=== PATIENT | female | born 1950 | race Caucasian/White ===

== ENCOUNTER → 2017-06-12 | Outpatient (CLI) | payer MEDICARE, MEDICAID | END | disposition home or self-care (01) | LOC: CFH 15:50 | PROVIDERS: ATTEND Internal Medicine Critical Care Medicine | DX: J43.2 Centrilobular emphysema (principal); J96.10 Chronic respiratory failure, unspecified whether with hypoxia or hypercapnia; E07.89 Other specified disorders of thyroid | CPT/HCPCS: 71250 ==

== ENCOUNTER → 2017-10-24 | Outpatient (CLI) | payer MEDICARE, MEDICAID | END | disposition home or self-care (01) | LOC: CFH 10:34 | PROVIDERS: ATTEND Internal Medicine Critical Care Medicine | DX: M48.02 Spinal stenosis, cervical region (principal); M50.20 Other cervical disc displacement, unspecified cervical region | CPT/HCPCS: 72141 ==

== ENCOUNTER → 2017-12-16 | Outpatient (CLI) | payer MEDICARE, MEDICAID | END | disposition home or self-care (01) | LOC: CFH 09:40 | PROVIDERS: ATTEND Family Medicine | DX: Z12.31 Encounter for screening mammogram for malignant neoplasm of breast (principal); M81.0 Age-related osteoporosis without current pathological fracture; N95.9 Unspecified menopausal and perimenopausal disorder | CPT/HCPCS: 77080; 77067 ==

== ENCOUNTER 2018-05-13 10:09 | Outpatient (CLI) | payer MEDICARE, MEDICAID ==
[2018-05-13 11:50] LABS: BASOPHILS # (AUTO) 0.03 x10^3/uL (0-0.1); BASOPHILS % (AUTO) 0 % (0-1); EOSINOPHILS # (AUTO) 0.17 x10^3/uL (0-0.4); EOSINOPHILS % (AUTO) 2 % (1-7); LYMPHOCYTES # (AUTO) 2.29 x10^3/uL (1-3.4); LYMPHOCYTES % (AUTO) 33 % (22-44); MD NO; MEAN CORPUSCULAR HEMOGLOBIN 32.2 pg (27.0-34.8); MEAN CORPUSCULAR HGB CONC 33.4 g/dL (32.4-35.8); MEAN CORPUSCULAR VOLUME 96.5 fL (80-100); MEAN PLATELET VOLUME 8.1 fL (7.4-10.4); MONOCYTES # (AUTO) 0.67 x10^3/uL (0.2-0.8); MONOCYTES % (AUTO) 10 % (2-9); NEUTROPHILS % (AUTO) 55 % (42-75); PLATELET COUNT 201 x10^3/uL (130-400); RED BLOOD COUNT 4.25 x10^6/uL (3.82-5.3); RED CELL DISTRIBUTION WIDTH 12.8 % (9.6-15.2)
[2018-05-13 11:57] LABS: INTERNATIONAL NORMALIZED RATIO 1.04 (0.93-1.1)
[2018-05-13 12:00] LABS: ALANINE AMINOTRANSFERASE 115 U/L (12-78); ALBUMIN 3.5 g/dL (3.4-5.0); ANION GAP 6 mmol/L (5-15); CALCIUM 8.7 mg/dL (8.5-10.1); CHLORIDE 105 mmol/L (98-107); GAMMA GLUTAMYL TRANSPEPTIDASE 490 U/L (5-55)
[2018-05-13 12:04] LABS: % IRON SATURATION 34 % (20-55); ALKALINE PHOSPHATASE 76 U/L (45-117); BILIRUBIN,TOTAL 0.6 mg/dL (0.2-1.0); IRON LEVEL 146 mcg/dL (50-170); TOTAL IRON BINDING CAPACITY 434 mcg/dL (250-450)
== END 2018-05-13 23:59 | disposition home or self-care (01) ==
LOC: RAD 10:09
PROVIDERS: ATTEND Physician Assistant
DX: K80.20 Calculus of gallbladder without cholecystitis without obstruction (principal); B18.2 Chronic viral hepatitis C; R74.8 Abnormal levels of other serum enzymes
CPT/HCPCS: 36415; 76700; 80053; 81596; 82107; 82172; 82247; 82728; 82977; 83010; 83540; 83550; 83883; 84460; 85025; 85610; 86038; 86704; 86706; 86708; 87340; 87522; 87806; 87902; G0475

== ENCOUNTER 2019-05-26 11:50 | Inpatient (IN) | payer MEDICARE, MEDICAID ==
[~2019-05-26] VITALS: Ht 165.1 cm; Wt 60.7 kg
[2019-05-26] MEDS ORDERED: AMOXICILLIN (12:22)
--- NOTE | 2019-05-26 12:22 | NUR ---
PT CAME IN FROM . PT HAS COUGH AND HAS BEEN COUGHING UP YELLOW MUCUS. WAS GIVEN ABX FROM ON ON THE WHICH HAS GIVEN HER DIARRHEA. PT IS ON 3LITERS O2 VIA [facility] WHICH HER IS RX. SHE IS ON O2 02/12. O2 SAT AT 95%. 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 O2 SAT IS 95%
[2019-05-26] MEDS ORDERED: ALBUTEROL/IPRATROPIUM 2.5MG/0.5MG, 3 ML ONE (13:18)
--- NOTE | 2019-05-26 13:26 | NUR ---
PT RESTING IN HOSPITAL BED. AWAITING BREATHING TREATMENT
[2019-05-26] MEDS ORDERED: ALBUTEROL/IPRATROPIUM 2.5MG/0.5MG, 3 ML NPPB ONE (13:30)
[2019-05-26 13:36] LABS: BASOPHILS # (AUTO) 0.01 x10^3/uL (0-0.1); BASOPHILS % (AUTO) 0 % (0-1); EOSINOPHILS # (AUTO) 0.15 x10^3/uL (0-0.4); EOSINOPHILS % (AUTO) 1 % (1-7); LYMPHOCYTES # (AUTO) 1.83 x10^3/uL (1-3.4); LYMPHOCYTES % (AUTO) 17 % (22-44); MD NO; MEAN CORPUSCULAR HEMOGLOBIN 31.1 pg (27.0-34.8); MEAN CORPUSCULAR VOLUME 94.3 fL (80-100); MEAN PLATELET VOLUME 7.3 fL (7.4-10.4); MONOCYTES # (AUTO) 0.07 x10^3/uL (0.2-0.8); MONOCYTES % (AUTO) 1 % (2-9); NEUTROPHILS # (AUTO) 8.68 x10^3/uL (1.8-6.8); NEUTROPHILS % (AUTO) 81 % (42-75); PLATELET COUNT 262 x10^3/uL (130-400); RED BLOOD COUNT 4.11 x10^6/uL (3.82-5.3); RED CELL DISTRIBUTION WIDTH 12.9 % (9.6-15.2)
[2019-05-26 13:50] LABS: ALBUMIN 3.2 g/dL (3.4-5.0); ANION GAP 4 mmol/L (5-15); CALCIUM 9.1 mg/dL (8.5-10.1); CHLORIDE 105 mmol/L (98-107)
[2019-05-26 13:52] LABS: ALANINE AMINOTRANSFERASE 26 U/L (12-78); ALKALINE PHOSPHATASE 53 U/L (45-117); BILIRUBIN,TOTAL 0.3 mg/dL (0.2-1.0); CREATININE 0.66 mg/dL (0.55-1.02); TOTAL PROTEIN 7.5 g/dL (6.4-8.2); TROPONIN I < 0.015 ng/mL (0.000-0.045)
--- NOTE | 2019-05-26 14:07 | NUR ---
PT RESTING IN HOSPITAL BED. NO NEEDS AT THIS TIME
[2019-05-26] MEDS ORDERED: SODIUM CHLORIDE FLUSH 10ML SYR IVF PRN (14:30)
[2019-05-26] MEDS: SODIUM CHLORIDE 0.9% 1,000 ML IV SCH ×2 (15:49→21:04)
[2019-05-26] MEDS ORDERED: PLEASE ENTER HEIGHT AND WEIGHT MC SCH (16:00)
[2019-05-26] MEDS: PLEASE ENTER WEIGHT MC SCH (16:08)
--- NOTE | 2019-05-26 16:43 | NUR ---
PT WAS ORIGINALLY GOING TO ONC. ORDER CHANGED TO CTELE. PT IS IN ROOM AWAITING ROOM.
[2019-05-26 17:02] LABS: TROPONIN I < 0.015 ng/mL (0.000-0.045)
--- NOTE | 2019-05-26 17:03 | NUR ---
PT AMBULATED TO BATHROOM. UNABLE TO PROVIDE STOOL SAMPLE AT THIS TIME
[2019-05-26] MEDS ORDERED: ENOXAPARIN 40 MG/0.4 ML ONE (17:06)
[2019-05-26] MEDS ORDERED: GABAPENTIN 300 MG CAPSULE ONE (17:07)
[2019-05-26] MEDS: GABAPENTIN 300 MG CAPSULE PO SCH ×2 (17:11→19:56)
[2019-05-26] MEDS: ENOXAPARIN 40 MG/0.4 ML SQ SCH (17:11)
--- NOTE | 2019-05-26 17:17 | NUR ---
SPOKE TO PHARMACY. DR CALLES SAID IT WAS OK TO ADM 40MG LOVENOX
[2019-05-26 18:24] VITALS: BP 116/78
[2019-05-26] MEDS: ALBUTEROL/IPRATROPIUM 2.5MG/0.5MG, 3 ML NPPB SCH (19:20)
[2019-05-26] MEDS: BUDESONIDE 0.5 MG/2 ML INHA INH SCH (19:22)
[2019-05-26 19:25] VITALS: BP 140/78
[2019-05-26] MEDS ORDERED: METH5TAB2 PO (19:26)
[2019-05-26] MEDS ORDERED: LORA-247 PO (19:48)
[2019-05-26] MEDS ORDERED: MONT10TA6 PO (19:48)
[2019-05-26] MEDS ORDERED: TIOT4MIS3 INH (19:55)
[2019-05-26] MEDS ORDERED: ROFL250T PO (19:55)
[2019-05-26] MEDS ORDERED: IPRA4AER INH (19:55)
[2019-05-26] MEDS ORDERED: ALBU18HF INH (19:55)
[2019-05-26] MEDS ORDERED: FLUT100B INH (19:55)
[2019-05-26] MEDS ORDERED: GABA-827 PO (19:55)
[2019-05-26] MEDS: GUAIFENESIN/DM 200-20MG, 10ML UDC PO PRN (21:03)
[2019-05-26] MEDS: MONTELUKAST 10 MG TABLET PO SCH (21:03)
[2019-05-26 22:09] LABS: CLOSTRIDIUM DIFFICILE ANTIGEN NEGATIVE; CLOSTRIDIUM DIFFICILE TOXIN NEGATIVE (Negative)
[2019-05-26 22:52] LABS: TROPONIN I < 0.015 ng/mL (0.000-0.045)
[2019-05-27] MEDS: PLEASE ENTER WEIGHT MC SCH ×2 (00:08→08:08)
[2019-05-27 02:26] VITALS: BP 114/66
[2019-05-27] MEDS: ALBUTEROL/IPRATROPIUM 2.5MG/0.5MG, 3 ML NPPB SCH ×4 (06:15→20:00)
[2019-05-27] MEDS: BUDESONIDE 0.5 MG/2 ML INHA INH SCH (06:15)
[2019-05-27 06:18] LABS: CALCIUM 8.3 mg/dL (8.5-10.1); CHLORIDE 102 mmol/L (98-107)
[2019-05-27 06:22] LABS: BASOPHILS # (AUTO) 0.02 x10^3/uL (0-0.1); BASOPHILS % (AUTO) 0 % (0-1); EOSINOPHILS # (AUTO) 0.01 x10^3/uL (0-0.4); EOSINOPHILS % (AUTO) 0 % (1-7); LYMPHOCYTES # (AUTO) 1.51 x10^3/uL (1-3.4); LYMPHOCYTES % (AUTO) 20 % (22-44); MD NO; MEAN CORPUSCULAR HEMOGLOBIN 30.3 pg (27.0-34.8); MEAN CORPUSCULAR VOLUME 94.7 fL (80-100); MEAN PLATELET VOLUME 7.3 fL (7.4-10.4); MONOCYTES # (AUTO) 0.84 x10^3/uL (0.2-0.8); MONOCYTES % (AUTO) 11 % (2-9); NEUTROPHILS # (AUTO) 5.31 x10^3/uL (1.8-6.8); NEUTROPHILS % (AUTO) 69 % (42-75); PLATELET COUNT 250 x10^3/uL (130-400); RED BLOOD COUNT 3.95 x10^6/uL (3.82-5.3); RED CELL DISTRIBUTION WIDTH 13.1 % (9.6-15.2)
[2019-05-27 06:33] LABS: ANION GAP 5 mmol/L (5-15); CREATININE 0.59 mg/dL (0.55-1.02)
[2019-05-27 06:34] LABS: ALANINE AMINOTRANSFERASE 24 U/L (12-78); ALBUMIN 2.9 g/dL (3.4-5.0); ALKALINE PHOSPHATASE 51 U/L (45-117); BILIRUBIN,TOTAL 0.3 mg/dL (0.2-1.0); TOTAL PROTEIN 6.9 g/dL (6.4-8.2)
[2019-05-27] MEDS: ACETAMINOPHEN 325 MG TABLET PO PRN (06:36)
[2019-05-27 06:59] VITALS: BP 132/67
[2019-05-27 07:20] LABS: MICROSCOPIC NOT IND
[2019-05-27 07:22] LABS: CULTURE INDICATED? NO
[2019-05-27 09:58] VITALS: BP 167/74
[2019-05-27] MEDS ORDERED: hydrALAzine 20 MG/ML, 1ML IV PRN (10:30)
[2019-05-27] MEDS: GABAPENTIN 300 MG CAPSULE PO SCH ×3 (11:29→21:09)
[2019-05-27] MEDS: GUAIFENESIN 200 MG TABLET PO SCH ×3 (11:30→21:09)
[2019-05-27] MEDS: GUAIFENESIN/DM 200-20MG, 10ML UDC PO PRN ×2 (12:20→21:09)
[2019-05-27] MEDS: METHADONE 10 MG TABLET PO SCH (12:20)
[2019-05-27 15:06] VITALS: BP 131/71
[2019-05-27] MEDS: ENOXAPARIN 40 MG/0.4 ML SQ SCH (15:43)
[2019-05-27] MEDS: AZITHROMYCIN 500 MG in SODIUM CHLORIDE 0.9% 250 ML IV SCH (15:43)
[2019-05-27] MEDS: methylPREDNISolone SOD SUCC 40 MG/ML IV SCH ×2 (15:44→23:24)
[2019-05-27] MEDS: SODIUM CHLORIDE 0.9% 1,000 ML IV SCH (17:06)
[2019-05-27 20:27] VITALS: BP 133/69
[2019-05-27] MEDS: MONTELUKAST 10 MG TABLET PO SCH (21:09)
[2019-05-28 01:39] VITALS: BP 123/66
[2019-05-28] MEDS: ALBUTEROL/IPRATROPIUM 2.5MG/0.5MG, 3 ML NPPB SCH ×5 (01:49→20:00)
[2019-05-28] MEDS: ACETAMINOPHEN 325 MG TABLET PO PRN ×3 (05:08→19:31)
[2019-05-28] MEDS: GUAIFENESIN 200 MG TABLET PO SCH ×4 (05:08→21:44)
[2019-05-28 06:19] LABS: BASOPHILS # (AUTO) 0.01 x10^3/uL (0-0.1); BASOPHILS % (AUTO) 0 % (0-1); EOSINOPHILS % (AUTO) 0 % (1-7); LYMPHOCYTES # (AUTO) 0.83 x10^3/uL (1-3.4); LYMPHOCYTES % (AUTO) 13 % (22-44); MD NO; MEAN CORPUSCULAR HEMOGLOBIN 30.6 pg (27.0-34.8); MEAN CORPUSCULAR HGB CONC 32.7 g/dL (32.4-35.8); MEAN CORPUSCULAR VOLUME 93.6 fL (80-100); MEAN PLATELET VOLUME 7.4 fL (7.4-10.4); MONOCYTES # (AUTO) 0.27 x10^3/uL (0.2-0.8); MONOCYTES % (AUTO) 4 % (2-9); NEUTROPHILS # (AUTO) 5.35 x10^3/uL (1.8-6.8); NEUTROPHILS % (AUTO) 83 % (42-75); PLATELET COUNT 250 x10^3/uL (130-400); RED BLOOD COUNT 4.03 x10^6/uL (3.82-5.3); RED CELL DISTRIBUTION WIDTH 13.1 % (9.6-15.2)
[2019-05-28 06:24] LABS: ALBUMIN 3.2 g/dL (3.4-5.0); ANION GAP 7 mmol/L (5-15); CALCIUM 9.1 mg/dL (8.5-10.1); CHLORIDE 104 mmol/L (98-107); CREATININE 0.64 mg/dL (0.55-1.02)
[2019-05-28 07:11] VITALS: BP 138/80
[2019-05-28] MEDS: SODIUM CHLORIDE 0.9% 1,000 ML IV SCH (07:49)
[2019-05-28] MEDS ORDERED: METHADONE 5 MG TABLET ONE (07:51)
[2019-05-28] MEDS: methylPREDNISolone SOD SUCC 40 MG/ML IV SCH ×3 (07:57→23:31)
[2019-05-28] MEDS: METHADONE 10 MG TABLET PO SCH (07:57)
[2019-05-28] MEDS: GABAPENTIN 300 MG CAPSULE PO SCH ×3 (07:57→21:45)
[2019-05-28] MEDS ORDERED: POTASSIUM PHOSPHATE 44 MEQ in SODIUM CHLORIDE 0.9% 500 ML IV ONE (08:00)
[2019-05-28 13:36] VITALS: BP 147/53
[2019-05-28] MEDS: AZITHROMYCIN 500 MG in SODIUM CHLORIDE 0.9% 250 ML IV SCH (13:55)
[2019-05-28] MEDS: ENOXAPARIN 40 MG/0.4 ML SQ SCH (15:51)
[2019-05-28 19:43] VITALS: BP 154/85
[2019-05-28] MEDS: GUAIFENESIN/DM 200-20MG, 10ML UDC PO PRN (21:44)
[2019-05-28] MEDS: MONTELUKAST 10 MG TABLET PO SCH (21:45)
[2019-05-29] MEDS: ALBUTEROL/IPRATROPIUM 2.5MG/0.5MG, 3 ML NPPB SCH ×5 (00:32→20:00)
[2019-05-29 04:00] VITALS: BP 137/83
[2019-05-29] MEDS: GUAIFENESIN 200 MG TABLET PO SCH ×4 (05:35→20:24)
[2019-05-29 06:15] LABS: ALBUMIN 3.4 g/dL (3.4-5.0); ANION GAP 6 mmol/L (5-15); BASOPHILS # (AUTO) 0.05 x10^3/uL (0-0.1); BASOPHILS % (AUTO) 0 % (0-1); CHLORIDE 104 mmol/L (98-107); CREATININE 0.61 mg/dL (0.55-1.02); EOSINOPHILS # (AUTO) 0.01 x10^3/uL (0-0.4); EOSINOPHILS % (AUTO) 0 % (1-7); LYMPHOCYTES % (AUTO) 19 % (22-44); MD NO; MEAN CORPUSCULAR HEMOGLOBIN 30.9 pg (27.0-34.8); MEAN CORPUSCULAR HGB CONC 33.1 g/dL (32.4-35.8); MEAN CORPUSCULAR VOLUME 93.2 fL (80-100); MEAN PLATELET VOLUME 7.6 fL (7.4-10.4); MONOCYTES # (AUTO) 0.87 x10^3/uL (0.2-0.8); MONOCYTES % (AUTO) 7 % (2-9); NEUTROPHILS # (AUTO) 9.21 x10^3/uL (1.8-6.8); NEUTROPHILS % (AUTO) 73 % (42-75); PLATELET COUNT 293 x10^3/uL (130-400); RED BLOOD COUNT 4.28 x10^6/uL (3.82-5.3)
[2019-05-29 08:20] VITALS: BP 147/89
[2019-05-29] MEDS: methylPREDNISolone SOD SUCC 40 MG/ML IV SCH (08:59)
[2019-05-29] MEDS: GABAPENTIN 300 MG CAPSULE PO SCH ×3 (08:59→20:23)
[2019-05-29] MEDS: METHADONE 10 MG TABLET PO SCH (08:59)
[2019-05-29] MEDS: FLUTICASONE FUROATE 100MCG/INH INH SCH (09:20)
[2019-05-29] MEDS: DIPHENOXYLATE/ATROPINE TABLET PO PRN (09:20)
[2019-05-29] MEDS ORDERED: ROFLUMILAST 500 MCG PO SCH (09:30)
[2019-05-29] MEDS: Roflumilast (Daliresp) 500 MCG) HOMEMEDPO SCH (09:30)
[2019-05-29] MEDS ORDERED: TEMPLATE NON-FORMULARY MED. (Tiotropium Br/Olodaterol HCl (Stiolto Respimat Inhal Spray) 2 INH SCH (09:30)
[2019-05-29] MEDS: GUAIFENESIN/DM 200-20MG, 10ML UDC PO PRN ×2 (12:18→20:22)
[2019-05-29 12:47] VITALS: BP 138/82
[2019-05-29] MEDS: AZITHROMYCIN 500 MG TABLET PO SCH (16:48)
[2019-05-29] MEDS: NYSTATIN 500,000 UNITS/5 ML UDC PO SCH ×2 (16:48→20:22)
[2019-05-29] MEDS: ENOXAPARIN 40 MG/0.4 ML SQ SCH (16:53)
[2019-05-29 20:15] VITALS: BP 117/68
[2019-05-29] MEDS: MONTELUKAST 10 MG TABLET PO SCH ×2 (20:23→20:24)
[2019-05-30 03:11] VITALS: BP 134/74
[2019-05-30] MEDS: ALBUTEROL/IPRATROPIUM 2.5MG/0.5MG, 3 ML NPPB SCH ×5 (04:41→19:29)
[2019-05-30] MEDS: NYSTATIN 500,000 UNITS/5 ML UDC PO SCH ×4 (05:11→20:39)
[2019-05-30] MEDS: GUAIFENESIN 200 MG TABLET PO SCH ×4 (05:11→20:39)
[2019-05-30 06:40] LABS: BASOPHILS # (AUTO) 0.02 x10^3/uL (0-0.1); BASOPHILS % (AUTO) 0 % (0-1); EOSINOPHILS # (AUTO) 0.06 x10^3/uL (0-0.4); EOSINOPHILS % (AUTO) 1 % (1-7); LYMPHOCYTES # (AUTO) 4.37 x10^3/uL (1-3.4); LYMPHOCYTES % (AUTO) 39 % (22-44); MD NO; MEAN CORPUSCULAR HEMOGLOBIN 30.6 pg (27.0-34.8); MEAN CORPUSCULAR HGB CONC 32.3 g/dL (32.4-35.8); MEAN CORPUSCULAR VOLUME 94.5 fL (80-100); MEAN PLATELET VOLUME 7.7 fL (7.4-10.4); MONOCYTES # (AUTO) 0.94 x10^3/uL (0.2-0.8); MONOCYTES % (AUTO) 8 % (2-9); NEUTROPHILS # (AUTO) 5.83 x10^3/uL (1.8-6.8); NEUTROPHILS % (AUTO) 52 % (42-75); PLATELET COUNT 289 x10^3/uL (130-400); RED BLOOD COUNT 4.59 x10^6/uL (3.82-5.3); RED CELL DISTRIBUTION WIDTH 13.4 % (9.6-15.2)
[2019-05-30 06:53] LABS: ANION GAP 4 mmol/L (5-15); CALCIUM 9.7 mg/dL (8.5-10.1); CHLORIDE 102 mmol/L (98-107)
[2019-05-30 06:55] LABS: CREATININE 0.64 mg/dL (0.55-1.02)
[2019-05-30 07:38] VITALS: BP 122/73
[2019-05-30] MEDS: FLUTICASONE FUROATE 100MCG/INH INH SCH (08:38)
[2019-05-30] MEDS: METHADONE 10 MG TABLET PO SCH (08:38)
[2019-05-30] MEDS: GABAPENTIN 300 MG CAPSULE PO SCH ×3 (08:38→20:39)
[2019-05-30] MEDS: AZITHROMYCIN 500 MG TABLET PO SCH (08:38)
[2019-05-30] MEDS: ACETAMINOPHEN 325 MG TABLET PO PRN (08:38)
[2019-05-30] MEDS: Roflumilast (Daliresp) 500 MCG) HOMEMEDPO SCH (10:10)
[2019-05-30 13:02] VITALS: BP 120/70
[2019-05-30] MEDS: ENOXAPARIN 40 MG/0.4 ML SQ SCH (16:21)
[2019-05-30 19:49] VITALS: BP 138/78
[2019-05-30] MEDS: MONTELUKAST 10 MG TABLET PO SCH ×2 (20:39)
[2019-05-30] MEDS: GUAIFENESIN/DM 200-20MG, 10ML UDC PO PRN (20:49)
[2019-05-31] MEDS: ACETAMINOPHEN 325 MG TABLET PO PRN (01:13)
[2019-05-31 01:37] VITALS: BP 127/82
[2019-05-31] MEDS: GUAIFENESIN 200 MG TABLET PO SCH (05:39)
[2019-05-31] MEDS: NYSTATIN 500,000 UNITS/5 ML UDC PO SCH (05:39)
[2019-05-31] MEDS: ALBUTEROL/IPRATROPIUM 2.5MG/0.5MG, 3 ML NPPB SCH ×2 (07:00→10:10)
[2019-05-31 07:11] VITALS: BP 143/81
[2019-05-31] MEDS: AZITHROMYCIN 500 MG TABLET PO SCH (08:52)
[2019-05-31] MEDS: METHADONE 10 MG TABLET PO SCH (08:52)
[2019-05-31] MEDS: GABAPENTIN 300 MG CAPSULE PO SCH (08:52)
[2019-05-31] MEDS: FLUTICASONE FUROATE 100MCG/INH INH SCH (08:55)
[2019-05-31] MEDS: Roflumilast (Daliresp) 500 MCG) HOMEMEDPO SCH (08:56)
[2019-05-31] MEDS ORDERED: NYST1000 PO (09:30)
[2019-05-31] MEDS: DIPHENOXYLATE/ATROPINE TABLET PO PRN (10:29)
== END 2019-05-31 11:25 | disposition home or self-care (01) | DRG 191 ==
LOC: ED 14:43 → EDIP 15:49 → 4WST 18:01 → DCLOUNGE 05-31 11:18
PROVIDERS: ADMIT Internal Medicine; ATTEND Family Medicine
DX: J44.1 Chronic obstructive pulmonary disease with (acute) exacerbation (principal); F13.20 Sedative, hypnotic or anxiolytic dependence, uncomplicated; J96.10 Chronic respiratory failure, unspecified whether with hypoxia or hypercapnia; K52.9 Noninfective gastroenteritis and colitis, unspecified; Z99.81 Dependence on supplemental oxygen; E86.0 Dehydration; F11.90 Opioid use, unspecified, uncomplicated; F41.9 Anxiety disorder, unspecified; Z82.5 Family history of asthma and other chronic lower respiratory diseases; Z85.828 Personal history of other malignant neoplasm of skin; Z87.891 Personal history of nicotine dependence
CPT/HCPCS: 36415; 71045; 80048; 80053; 80069; 81003; 83735; 84100; 84145; 84443; 84484; 85025; 85379; 87046; 87324; 89055; 93005; 94640; 99285; G0378; J0456; J1650; J7620; J7626; J0360; J2920; J7030; J7040; J7050; J7512

== ENCOUNTER → 2020-07-28 | Outpatient (CLI) | payer MEDICARE, MEDICAID ==
[~2020-07-28] MED LIST: ALBU18HF INH; AMOXICILLIN; FLUT100B INH; GABA-827 PO; IPRA4AER INH; LORA-247 PO; METH5TAB2 PO; MONT10TA6 PO; NYST1000 PO; ROFL250T PO; TIOT4MIS3 INH
== END | disposition home or self-care (01) ==
LOC: CFH 10:17
PROVIDERS: ATTEND Internal Medicine
DX: K80.20 Calculus of gallbladder without cholecystitis without obstruction (principal); B19.20 Unspecified viral hepatitis C without hepatic coma
CPT/HCPCS: 76700